=== PATIENT | female | born 1970 | race Caucasian/White ===

== ENCOUNTER 2016-10-26 13:16 | Emergency (ER) | payer OTHER ==
[2016-10-26] MEDS ORDERED: LORazepam 2 MG/ML INJ ONE (13:30)
[2016-10-26] MEDS ORDERED: KETOROLAC 30 MG/1 ML SDV IVP ONE (13:47)
[2016-10-26] MEDS ORDERED: LORazepam 2 MG/ML INJ IVP ONE (13:58)
--- NOTE | 2016-10-26 14:11 | EDPHY ---
H & P Smoking Status: Never smoked Time Seen by Provider: 10/26/16 13:28 HPI/ROS: CHIEF COMPLAINT: Anxiety, shortness of breath, chronic left hip pain HISTORY OF PRESENT ILLNESS: 46-year-old female presents to the emergency department by private vehicle complaining of shortness of breath. The patient has had ongoing chronic left hip and low back pain since July of 2016, nearly 2 months. Patient denies any known precipitating injury. She has seen chiropractors, acupuncture risks, physical therapist, she has had dry needling. She has not had any relief from her pain. She saw orthopedic surgeon today Dr. Layton, and had x-rays taken which she was told was unremarkable. She is scheduled to have an MRI of her left hip and low back. She took 10 mg Flexeril this morning and this was repeated 2 hours later. Her last dose of Flexeril was 11:00 a.m.. She was prescribed prednisone 20 mg three times daily. She took 20 mg prior to arrival and became extremely anxious, she was hyperventilating. She developed tingling in her fingers and around her lips. She developed carpopedal spasms. She denies abdominal pain. Denies headache. Denies neck or back pain. She has no new pain in her left hip. She states that she cannot get comfortable. She feels that the pain in her left hip is the same ongoing pain that she has had for the past nearly 2 months. REVIEW OF SYSTEMS: Constitutional: No fever, no chills. Eyes: No double or blurry vision. ENT: No sore throat. Respiratory: No cough, no shortness of breath. Cardiac: No chest pain. Gastrointestinal: No abdominal pain, vomiting or diarrhea. Genitourinary: No dysuria. Musculoskeletal: Back pain as above. No neck pain. Skin: No rashes. Neurological: No headache. (Elida Pastrana) Past Medical/Surgical History: Chronic left hip pain (Elida Pastrana) Social History: (Elida Pastrana) Physical Exam: General Appearance: Alert, extremely anxious and hyperventilating. Initial respiratory rate of 36, heart rate of 132, 126/92, 97% on room air. Eyes: Pupils equal and round. Extraocular motions are all intact. ENT: Mouth: Mucous membranes moist. Respiratory: No wheezing, rhonchi, or rales, lungs are clear to auscultation. Cardiovascular: Regular rate and rhythm. Gastrointestinal: Abdomen is soft and nontender, no masses, no rebound or guarding, bowel sounds normal. Neurological: Alert and oriented x 3, cranial nerves II through XII grossly intact Skin: Warm and dry, no rashes. Musculoskeletal: Nontender to palpate along the cervical, thoracic or lumbar spine. Neck is supple. Extremities: Full range of motion of her upper extremities in her right lower extremity. The patient is unable to lie flat secondary to severe pain in her left hip. She is unable to fully extend her left hip secondary to pain. The patient is lying in her right lateral decubitus position. Psychiatric: Patient is oriented X 3, there is no agitation. (Elida Pastrana) Constitutional: Initial Vital Signs Temperature (C) 36.5 C 10/26/16 13:24 Heart Rate 132 H 10/26/16 13:24 Respiratory Rate 36 H 10/26/16 13:24 Blood Pressure 126/92 H 10/26/16 13:24 O2 Sat (%) 97 10/26/16 13:24 O2 Delivery Mode Room Air Allergies/Adverse Reactions: No Known Allergies Allergy (Verified 10/26/16 13:23) Home Medications: Medication Instructions Recorded Cyclobenzaprine 10/26/16 Diazepam [Valium] 5 mg PO TIDPRN PRN #15 tab 10/26/16 Prednisone 10/26/16 Medical Decision Making ED Course/Re-evaluation: 46-year-old female presents to the emergency department feeling extremely anxious. I think this is likely related to adverse reaction from prednisone that she took prior to arrival. The patient was given 25 mg of IV Benadryl and was also given 1 mg of Ativan IV. As I was talking with the patient, she was beginning to calm down. She was not hyperventilating anymore. Her carpal pedal spasms had resolved. She is now resting comfortably. The patient was resting comfortably. She was no longer hyperventilating. Her pain in her left hip and low back had improved. The patient will stop the prednisone and cyclobenzaprine that were prescribed for her. She was given a prescription for Valium. She was instructed to keep her MRI scheduled. She was instructed to return if she had any recurring symptoms or any other concerns. (Elida Pastrana) Differential Diagnosis: Shortness of breath including but not limited to adverse reaction to medication , pulmonary infectious process, COPD, asthma, pulmonary embolus and congestive heart failure. (Elida Pastrana) Other Provider: The patient wasevaluatedand managed by themidlevel provider. My co- signature indicates that Ihrobbie reviewed this chart and I agree with the findings and plan of care asdocumented. I am the secondary supervising physician. (Judy Becker) - Data Points Medications Given: Discontinued Medications Diphenhydramine HCl (Benadryl Injection) 25 mg IVP EDNOW ONE Stop: 10/26/16 13:59 Last Admin: 10/26/16 13:35 Dose: 25 mg Ketorolac Tromethamine (Toradol) 30 mg IVP EDNOW ONE Stop: 10/26/16 13:48 Last Admin: 10/26/16 14:05 Dose: 30 mg Lorazepam (Ativan Injection) 1 mg IVP EDNOW ONE Stop: 10/26/16 13:59 Last Admin: 10/26/16 13:35 Dose: 1 mg Departure - Departure Disposition: Home, Routine, Self-Care Clinical Impression: Hyperventilating, Adverse drug reaction, Left hip pain, Low back pain Condition: Good Instructions: Hyperventilation (ED), Adverse Drug Reaction (ED), Back Pain (ED) , Anxiety (ED) Additional Instructions: Valium as needed for muscular spasm. Stop the prednisone and Flexeril that was prescribed to you. Ibuprofen 600 mg every 8 hours as needed for pain with food. Return to the emergency department if he developed recurring hyperventilation, difficulty breathing, or if you feel worse in any way. Referrals: Isidro Layton MD [Medical Doctor] - As per Instructions Prescriptions: Diazepam [Valium] 5 mg PO TIDPRN PRN #15 tab PRN Reason: Spasms
[2016-10-26 15:31] VITALS: BP 108/68; PULSE 67; RESP 16; TEMP 97.9; O2SAT 95
== END 2016-10-26 15:31 | disposition home or self-care (01) ==
DX: M54.5 Low back pain (principal); G89.29 Other chronic pain; R06.4 Hyperventilation; M25.552 Pain in left hip; T38.0X5A Adverse effect of glucocorticoids and synthetic analogues, initial encounter
CPT/HCPCS: 96374; J1200; J1885; J2060

== ENCOUNTER → 2016-12-30 | Outpatient (CLI) | payer OTHER | LOC: FIMAGING 16:50 | PROVIDERS: ATTEND Physician Assistant | DX: M79.605 Pain in left leg (principal) ==